=== PATIENT | female | born 1975 | race African-American/Black ===

== ENCOUNTER → 2023-10-11 | Emergency (ER) | payer BC ==
[~2023-10-11] MED LIST: ACETAMINOPHEN 500 MG TAB ONE; methocarbamoL 500 MG TAB ONE
--- OUTSIDE RECORDS SUMMARY | 2023-10-11 08:15 | XMS REPORT | Continuity of Care Document ---
Author Name Unknown Address [address] [facility] [address] [place] [address] [facility] Address [address] [address] [place] [address] Care Team Providers Care Otm Consultant Name Role Phone Jae Adair DO Attending Clinician Payers Payer Name Policy Type Policy Number Effective Date Expirati on Date Source Problems Condition Name Condition Details Condition Category Status Onset Date Resolution Date Last Treatment Date Treating Clinician Comments Source Presence of intrauteri ne contracept becca device Presence of intrauteri ne contracept becca device Disease Active 2018-07 00:00: 00 [facility] ASCUS on Pap smear ASCUS on Pap smear Disease Active 10-21 00:00: 00 Overview: Negative HPV. Repeat in 1 year [facility] Essential hypertensi on Essential hypertensi on Disease Active 10-10 00:00: 00 Overview: ICD10 Diagnosis Term [place] [employer] Utility [facility] Asthma Asthma Disease Active 10-10 00:00: 00 Overview: ICD10 Diagnosis Term [place] [employer] [facility] Social History Social Habit Start Date Stop Date Quantity Comments Source Tobacco use and exposure 2019-06-10 00:00:00 2019-06-10 00:00:00 Never used [facility] Alcohol intake 2019-06-10 00:00:00 2019-06-10 00:00:00 Current non-drinker of alcohol (finding) [facility] Sex Ass[birth year] At 1975 00:00:00 1975 00:00:00 [facility] Smoking Status Start Date Stop Date Source Never smoker [facility] Medications Ordered Medication Name Filled Medication Name Start Date Stop Date Current Medication? Ordering Clinician Indication Dosage Frequency Signature (SIG) Comments Components Source scopolamine transdermal 1 mg over 3 days patch 2018-07 00:00: 00 Yes DOLORES 1 PATCH Q 3 DAYS BEHIND THE EAR PRN [facility] metroNIDAZO LE 500 mg tablet 04-22 00:00: 00 Yes [facility] amLODIPine 10 mg tablet 03-05 00:00: 00 Yes [facility] metoprolol succinate XL 100 mg 24 hr tablet 03-05 00:00: 00 Yes [facility] Encounters Start Date/Time End Date/Time Encounter Type Admission Type Attending Clinicians Care Facility Care Department Encounter ID Source 2020-10-15 00:00:00 2020-10-15 00:00:00 Patient Outreach Jae Adair [facility] [id number] [facility]
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
[2023-10-11 09:59] VITALS: TEMP 97.9; O2SAT 100
[2023-10-11 10:01] VITALS: BP 145/85
== END ==
LOC: ER 08:12
DX: S13.9XXA Sprain of joints and ligaments of unspecified parts of neck, initial encounter (principal); R07.9 Chest pain, unspecified; V29.498A Other motorcycle driver injured in collision with other motor vehicles in traffic accident, initial encounter; I10 Essential (primary) hypertension
CPT/HCPCS: 70450; 71045; 72125